=== PATIENT | female | born 1995 | race Caucasian/White ===

== ENCOUNTER 2023-12-06 09:46 | Outpatient (CLI) | payer BC | END 2023-12-07 09:47 | disposition home or self-care (01) | LOC: CSHSLEEP 09:46 | PROVIDERS: ATTEND Nurse Practitioner Family | DX: G47.9 Sleep disorder, unspecified (principal); R53.83 Other fatigue; G47.10 Hypersomnia, unspecified | CPT/HCPCS: 95800 ==

== ENCOUNTER 2023-12-30 08:07 | Outpatient (CLI) | payer BC | END 2023-12-30 08:08 | disposition home or self-care (01) | LOC: CSHSLEEP 08:07 | PROVIDERS: ATTEND Nurse Practitioner Family | DX: G47.9 Sleep disorder, unspecified (principal); R53.83 Other fatigue; R51.9 Headache, unspecified; G47.33 Obstructive sleep apnea (adult) (pediatric); G47.31 Primary central sleep apnea | CPT/HCPCS: 95811 ==